=== PATIENT | male | born 1960 | race Caucasian/White ===

== ENCOUNTER 2018-03-25 09:27 | Emergency (ER) | payer OTHER, MEDICARE | END 2018-03-25 13:06 | disposition home or self-care (01) | LOC: FTE 09:27 | DX: S60.222A Contusion of left hand, initial encounter (principal); W23.0XXA Caught, crushed, jammed, or pinched between moving objects, initial encounter; Y92.9 Unspecified place or not applicable | CPT/HCPCS: 73130; 73130-LT; 99283-25 ==

== ENCOUNTER 2018-04-08 12:18 | Emergency (ER) | payer OTHER ==
[2018-04-08] MEDS: IBUPROFEN 800 MG TAB PO (13:00)
[2018-04-08] MEDS: ACETAMINOPHEN 500 MG TAB PO (13:01)
== END 2018-04-08 15:50 | disposition home or self-care (01) ==
LOC: FTE 12:18
DX: S89.391A Other physeal fracture of lower end of right fibula, initial encounter for closed fracture (principal); W18.39XA Other fall on same level, initial encounter; Y92.9 Unspecified place or not applicable
CPT/HCPCS: 29515; 73590; 73610-RT; 73630; 99283-25